=== PATIENT | male | born 1960 | race Caucasian/White ===

== ENCOUNTER 2017-09-23 02:34 | Day surgery (SDC) | payer BC, OTHER ==
[2017-09-22 15:31] LABS: INR 0.98
[2017-09-23] VITALS (9 sets, daily range): BP systolic 16–134; BP diastolic 55–81
[~2017-09-23] VITALS: Ht 177.8 cm; Wt 105.7 kg
[~2017-09-23 02:34] MED LIST: ACET-1966 PO; CEPH500C24 PO
[2017-09-23] MEDS ORDERED: FAMOTIDINE 20 MG TAB ONE (05:18)
[2017-09-23] MEDS ORDERED: TRANEXAMIC AC 1000 MG/10ML SDV 1,000 MG in DEXTROSE 5% 50 ML BAG 50 ML IV ONE (06:15)
[2017-09-23] MEDS ORDERED: MIDAZOLAM 2 MG/2 ML VIAL IVP PRN (06:15)
[2017-09-23] MEDS ORDERED: NORMOSOL R SOLN(*) 1000 ML BAG 1,000 ML IV PRN (06:15)
[2017-09-23] MEDS ORDERED: LIDOCAINE/SOD BICARB 8.4% SYR ID ONE (06:15)
[2017-09-23] MEDS ORDERED: FAMOTIDINE 20 MG/50 ML PREMIX IVPB ONE (06:15)
[2017-09-23] MEDS ORDERED: VANCOMYCIN(*) 1 GM VIAL 1 GM, VANCOMYCIN (*) 0.5 GM VIAL 0.5 GM in NS(*) 0.9% 250 ML BA... IVPB ONE (06:15)
[2017-09-23] MEDS ORDERED: cloNIDine EPIDUR INJ 100MCG/ML 40 MCG, ROPIVACAINE 0.5% 20 ML VIAL 25 ML, EPINEPHrine H... INJ ONE (06:15)
[2017-09-23] MEDS ORDERED: THROMBIN TOP SOLN 5000INTLU VL ONE (06:33)
[2017-09-23] MEDS ORDERED: GELATIN SPONGE 12-7MM ONE (06:34)
[2017-09-23] MEDS ORDERED: DEXAMETHASONE SOD 4 MG/ML VIAL ONE (06:52)
[2017-09-23] MEDS ORDERED: PROPOFOL EMUL(*) 10MG/ML 20 ML 20 ML ONE (06:52)
[2017-09-23] MEDS ORDERED: LIDOCAINE MPF 1% 5 ML VIAL ONE (06:52)
[2017-09-23] MEDS ORDERED: ROCURONIUM BROM 10 MG/ML 10 ML ONE (06:52)
[2017-09-23] MEDS ORDERED: SUGAMMADEX SOD 200 MG/2 ML SDV ONE (06:52)
[2017-09-23] MEDS ORDERED: fentaNYL CITR 250 MCG/5 ML AMP ONE (06:52)
[2017-09-23] MEDS ORDERED: ONDANSETRON 4 MG/2 ML VIAL ONE (06:52)
[2017-09-23] MEDS ORDERED: KETAMINE HCL 200 MG/20 ML MDV ONE (07:19)
--- NOTE | 2017-09-23 11:56 | OPERATIVE REPORT 1 ---
EVENT DATE: September 23, 2017 SURGEON: Eric Valderrama MD ANESTHESIOLOGIST: Real Sharif MD ANESTHESIA: General plus block. ICE HOCKEY COACH: KATHRYN Sexton PREOPERATIVE DIAGNOSIS Right shoulder degenerative joint disease. POSTOPERATIVE DIAGNOSIS Right shoulder degenerative joint disease. PROCEDURE PERFORMED Right total shoulder arthroplasty. ESTIMATED BLOOD LOSS 100. IVF 1300. TOURNIQUET TIME None. SPECIMENS None. COMPLICATIONS None. IMPLANTS Arthrosurface 12 mm post with 56 x 52 head and 20 x 25 inset glenoid. SUMMARY OF PROCEDURE The patient was brought into the operating room, placed on the OR table in the supine position. He was given a scalene block under ultrasound guidance, after which Dr. Sharif placed him under a general anesthetic. We placed him into a shallow beach chair position on a standard bed, and then prepped and draped the right shoulder and arm in usual fashion, after having removed sutures from the prior wrist surgery. After an adequate period of time had passed, we went ahead with the deltopectoral approach. The skin was incised, deepened through subcutaneous tissue using a unipolar cautery to control bleeding where necessary. He had a fairly large amount of subcutaneous tissue. We got down to fascia, and then developed the flaps very slightly, and then began to inspect the deltopectoral interval for the cephalic vein, which was not visible. There were two potential areas that could have been the deltopectoral interval, and it was actually somewhat difficult to ascertain which one was the true interval, but ultimately we were able to select the more lateral one and confirm that one portion of it distally did in fact go down to the pectoralis insertion in isolation, so the cephalic vein was identified approximately 2 cm below the deltoid in this interval. Even after doing so, it still seemed like the interval was a little bit too laterally, but it is partially because he had such large muscles. I would estimate the thickness of the deltoid was about 1-1 /2 inches, and that is true of the pectoralis as well. The conjoint tendon was identified. I palpated the axillary nerve. We placed a retractor beneath the conjoint tender and another behind the humeral head after developing the subdeltoid plane with a blunt Santy. I then made an incision in the subscapularis, leaving a cuff of soft tissue on the lateral side for later repair. We placed traction sutures on these so they would not be lost later. The joint fluid was clear. The head was then pushed forward for better exposure to begin the reaming process. However, this was extremely challenging , given the muscle mass that he had. Normally we just put a posterior humeral retractor in and some mild anterior retraction, and exposure is quite good, but in his case, even after placing the usual retractors, the head was pushed up against the pectoralis. I briefly tried creating a second interval, but it was clear that the pectoralis was being split by this. There was no axillary nerve present, so it is not like we were too far lateral. We were in the proper interval, and so we ended up just using more retractors to gain adequate access. We used a Darrach retractor of two different sizes on the medial side with a glenoid retractor inferiorly, and then began to work on removing the osteophytes. Once this was done, we used the various sizers to select our head size. The wire was placed, after which the centering guide was placed. We then reamed to remove the rest of the osteophytes and prepare the head for implantation. This got down to nice bleeding bone on all sides. We removed the debris from this, and then proceeded to prepare the glenoid. The glenoid was exposed. I did not do circumferential capsular release like I would normally do with an anatomic total shoulder arthroplasty, because this is a resurfacing device, and we really did want to keep the labrum. I had to do some exposure, however, because otherwise there was no way to get the reamers into position. Once this was prepared in an adequate fashion, I then selected the inferior margin of the glenoid for placement of the dual glenoid implant. We placed the reamer first with a 15, and then went up to a 20 inferiorly, followed by a second wire placement, and then the 15 mm reamer more superiorly. We trialed it, and it was inset appropriately. We then drilled the pegs and mixed cement. It was packed into position and then pushed down into the previously prepared surface. Excess cement was removed. After full polymerization, we moved onto the head. The 12 mm taper post was placed after drilling three-quarters of the way down to the normal position, and having placed the trial head cover with K wire support. I then placed the threaded post, and this did require quite a bit of torque, because he had excellent bone , and also because of the partial drilling previously. No cement was required. After cleaning the taper, we then opened up the 56 x 52 head and impacted this into position. It had a good fit and did not compromise the rotator cuff. We reduced him and tested his motion. He seemed fine. The wound was irrigate again, and then the subscapularis was repaired in anatomic position, after which he was injected with local anesthetic in case the block did not give adequate relief. The wound was irrigated again before closing subcutaneous tissue with 3-0 Vicryl, and then a 4-0 Monocryl completed the closure. He was given a dry, sterile dressing, Steri-Strips, and was awakened and transferred to the recovery area in stable condition. PALOMO
--- NOTE | 2017-09-23 14:09 | RADIOLOGY IMAGING REPORT ---
FACILITY: [facility] PATIENT NAME: Sravan Banks : 1960 MR: [id number] V: [id number] EXAM DATE: ORDERING PHYSICIAN: ANA SERRA TECHNOLOGIST: Location: [facility] Patient: Sravan Banks : 1960 Visit/Account:[id number] Date of Sevice: 09/23/2017 Exam type: SHOULDER 1 VIEW RIGHT History: CHECK PLACEMENT OF PROSTHESIS Comparison: None. Findings: There is a right shoulder arthroplasty that appears in good anatomic alignment on this single AP view IMPRESSION: 1. As above Report Dictated By: Naz Raymond MD at 09/23/2017 2:05 PM Report E-Signed By: Naz Raymond MD at 09/23/2017 2:05 PM WSN:[email or web address]
== END 2017-09-23 11:10 | disposition home or self-care (01) ==
LOC: OR 02:34
PROVIDERS: ATTEND Orthopaedic Surgery Hand Surgery
DX: M19.011 Primary osteoarthritis, right shoulder (principal); Z79.82 Long term (current) use of aspirin
CPT/HCPCS: 23472; 36415; 73020; 85610; 86850; 86900; 86901; 94667; A4565; C1713; C1776; J0171; J0735; J1100; J1885; J2001; J2250; J2405; J2704; J2795; J3010; J3370; J3490; J7050; J7060